=== PATIENT | male | born 1935 | race Caucasian/White ===

== ENCOUNTER → 2018-03-30 | Outpatient (CLI) | payer OTHER ==
[~2018-03-30] MED LIST: ACET325 PR; ACET500 PO; ALPR.25 PO; ALUM320SU PO; AMIT50 PO; AMLO5 PO; ASPI325 PO; ASPI81CH PO; ASPI81EC; ATOR10 PO; ATOR20 PO; ATROPINE 0.01%-10 ML SL; Alphagan P5 ML RIGHTEYE; Ancef/Kefzol1000 MG IV; Azor 10-20 MG1 EACH PO; Benadryl25 MG PO; CARV25 PO; CETI5 PO; CHOL10002 PO; CYAN1000 PO; DONE10 PO; Donnatal E16.2 MG/5; FAMO20 PO; Fentanyl1 EACH TD; GLIP10 PO; GLIP5ER; GLUCHON; HYDCHL12.5; IMIQUIMOD 5%; IMIQUIMOD1 EACH TOP; INSN100I SUBQ; INSU100I6; INSU100I6 SC; INSUGL100V; Isosorbide Mono30 MG PO; Isosorbide Mono60 MG PO; LEVSOD50 PO; LISI5; MAGOXI400 PO; MEMA10 PO; METF500; METO25 PO; METO25ER PO; MIDO5 PO; MORP20L SL; MULVITMIND PO; NITR.4SL SL; NORT25 PO; NYST100000 PO; Novolog100 UNIT/2 SC; Omeprazole20 M1 PO; PRED10 PO; PRED20 PO; PRED5EL PO; PREG75 PO; PROM12.5S PR; PYRI100 PO; Pepcid20 MG PO; Percocet 5-3251 EACH PO; Prilosec40 MG PO; ROSU10TA PO; SPIR25 PO; TICA90TA PO; Zofran Odt4 MG SL
[2018-03-30 12:27] LABS: Hematocrit 32.3 % (37.0-53.0); Hemoglobin 10.2 g/dL (13.5-17.5); Mean Corpuscular HGB 28.3 pg (26.0-34.0); Mean Corpuscular HGB Conc 31.6 g/dL (31.5-36.5); Mean Corpuscular Volume 90 fL (80-100); Mean Platelet Volume 10.6 fL (9.1-12.4); Platelet Count 210 K/mm3 (150-400); RDW Coefficient Variation 14.6 % (11.7-14.2); RDW Standard Deviation 47.1 fL (35.1-46.3); White Blood Cell Count 6.39 K/mm3 (4.00-11.30)
[2018-03-30 13:15] LABS: Albumin, Blood 2.6 g/dL (3.4-5.0); Albumin/Globulin Ratio 0.6 (0.8-1.8); Bilirubin, Total 0.4 mg/dL (0.1-1.0); Bun/Creatinine Ratio 12.6 (12.0-20.0); Calcium, Blood 8.3 mg/dL (8.5-10.1); Creatinine, Blood 2.69 mg/dL (0.60-1.20); Globulin, Blood 4.3 g/dL (2.2-4.0); Potassium, Blood 4.3 mmol/L (3.5-5.5); Total Protein, Blood 6.9 g/dL (6.4-8.2)
[2018-03-30 13:16] LABS: C-REACTIVE PROTEIN, EXT RANGE 5.28 mg/dL (0.000-0.300)
== END ==
LOC: LAB 11:53 → LAB SHORT 11:53
PROVIDERS: Internal Medicine
DX: E11.00 Type 2 diabetes mellitus with hyperosmolarity without nonketotic hyperglycemic-hyperosmolar coma (NKHHC) (principal); M00.872 Arthritis due to other bacteria, left ankle and foot
CPT/HCPCS: 80053; 85027; 85651; 86140

== ENCOUNTER → 2018-04-06 | Outpatient (CLI) | payer OTHER ==
[2018-04-06 11:52] LABS: Hematocrit 35.8 % (37.0-53.0); Hemoglobin 11.3 g/dL (13.5-17.5); Mean Corpuscular HGB 28.1 pg (26.0-34.0); Mean Corpuscular HGB Conc 31.6 g/dL (31.5-36.5); Mean Corpuscular Volume 89 fL (80-100); Mean Platelet Volume 10.8 fL (9.1-12.4); Platelet Count 188 K/mm3 (150-400); RDW Coefficient Variation 15.3 % (11.7-14.2); RDW Standard Deviation 50.4 fL (35.1-46.3); Red Blood Cell Count 4.02 M/mm3 (4.30-5.90)
[2018-04-06 12:05] LABS: Albumin, Blood 2.8 g/dL (3.4-5.0); Albumin/Globulin Ratio 0.6 (0.8-1.8); Bilirubin, Total 0.2 mg/dL (0.1-1.0); Bun/Creatinine Ratio 10.3 (12.0-20.0); C-REACTIVE PROTEIN, EXT RANGE 7.48 mg/dL (0.000-0.300); Calcium, Blood 8.8 mg/dL (8.5-10.1); Creatinine, Blood 5.03 mg/dL (0.60-1.20); Globulin, Blood 4.8 g/dL (2.2-4.0); Magnesium, Blood 2.4 mg/dL (1.6-2.4); Total Protein, Blood 7.6 g/dL (6.4-8.2)
== END ==
LOC: LAB SHORT 09:20 → LAB 09:20
PROVIDERS: Internal Medicine
DX: M00.872 Arthritis due to other bacteria, left ankle and foot (principal)
CPT/HCPCS: 80053; 83735; 85027; 85651; 86140

== ENCOUNTER 2018-04-09 16:20 | Inpatient (IN) | payer OTHER ==
[~2018-04-09] VITALS: Ht 182.9 cm; Wt 72.4 kg
[~2018-04-09 16:20] MED LIST changes: -ACET325 PR; -ALPR.25 PO; -ALUM320SU PO; -ATROPINE 0.01%-10 ML SL; -Alphagan P5 ML RIGHTEYE; -Ancef/Kefzol1000 MG IV; -CETI5 PO; -Donnatal E16.2 MG/5; -Fentanyl1 EACH TD; -INSU100I6; -Isosorbide Mono60 MG PO; -METO25 PO; -MIDO5 PO; -MORP20L SL; -NITR.4SL SL; -NYST100000 PO; -PRED5EL PO; -PROM12.5S PR
[2018-04-09] MEDS ORDERED: Alphagan P5 ML RIGHTEYE (17:01)
[2018-04-09] MEDS ORDERED: CETI5 PO (17:01)
[2018-04-09] MEDS ORDERED: FAMO20 PO (17:51)
[2018-04-09] MEDS ORDERED: MIDO5 PO (17:52)
[2018-04-09] MEDS ORDERED: ATOR20 PO (17:53)
[2018-04-09] MEDS ORDERED: Ancef/Kefzol1000 MG IV (17:54)
[2018-04-09 18:43] LABS: International Normalized Ratio 1.14; Prothrombin Time Results 11.9 Sec (9.7-11.5)
[2018-04-09 18:46] LABS: C-Reactive Protein, High Sens. 32.2 mg/L (0.000-3.000)
[2018-04-09 19:00] LABS: Creatinine, Urine Random 60.1 mg/dL (27.00-270.00)
[2018-04-09 19:46] LABS: Prostate Specific Antigen <0.010 ng/mL (0.000-4.000)
[2018-04-09 20:28] LABS: Bilirubin, Urine Neg (Neg); Blood, Urine 3+ (Neg); Glucose Qualitative, Urine 1+ (Neg); Ketones, Urine Neg (Neg); Leukocyte Esterase, Urine Neg (Neg); Nitrite, Urine Neg (Neg); Protein, Urine 3+ (Neg); Specific Gravity, Urine 1.015 (1.003-1.022); Urobilinogen, Urine NORM (Normal)
[2018-04-09 20:35] LABS: Appearance, Urine Clear (Clear); Color, Urine Yellow (P-Yellow); Eosinophils-Raw #,Urine 0
[2018-04-09 20:42] LABS: White Blood Cells, Urine Rare /hpf (0-5)
[2018-04-09 20:43] LABS: Amorphous Light ({null, 0-Heavy}); Bacteria Rare /hpf; Squamous Epithelial Cells Rare /hpf (Few)
[2018-04-09 20:49] LABS: White Blood Cells Urine 0-2 /hpf (0-5)
[2018-04-09 21:39] LABS: Albumin, Blood 2.6 g/dL (3.4-5.0); Anion Gap 20 mmol/L (6-16); Blood Urea Nitrogen 76 mg/dL (8-24); Bun/Creatinine Ratio 10.6 (12.0-20.0); CO2, Blood 14 mmol/L (21-32); Calcium, Blood 8.4 mg/dL (8.5-10.1); Chloride, Blood 105 mmol/L (98-108); Creatinine, Blood 7.16 mg/dL (0.60-1.20); Glomerular Filtration Rate 8 (60-); Glucose, Blood 190 mg/dL (70-99); Phosphorus, Blood 5.3 mg/dL (2.5-4.9); Potassium, Blood 4.7 mmol/L (3.5-5.5); Sodium, Blood 139 mmol/L (136-145)
[2018-04-09 23:21] LABS: Albumin, Blood 2.6 g/dL (3.4-5.0); Anion Gap 18 mmol/L (6-16); Blood Urea Nitrogen 75 mg/dL (8-24); Bun/Creatinine Ratio 10.6 (12.0-20.0); CO2, Blood 17 mmol/L (21-32); Calcium, Blood 8.1 mg/dL (8.5-10.1); Chloride, Blood 104 mmol/L (98-108); Creatinine, Blood 7.09 mg/dL (0.60-1.20); Glomerular Filtration Rate 8 (60-); Glucose, Blood 266 mg/dL (70-99); Phosphorus, Blood 5.7 mg/dL (2.5-4.9); Potassium, Blood 4.9 mmol/L (3.5-5.5); Sodium, Blood 139 mmol/L (136-145); Troponin I 0.083 ng/mL (0.000-0.040)
[2018-04-10 06:17] LABS: Hematocrit 30.1 % (37.0-53.0); Hemoglobin 9.4 g/dL (13.5-17.5); Mean Corpuscular HGB 28.6 pg (26.0-34.0); Mean Corpuscular HGB Conc 31.2 g/dL (31.5-36.5); Mean Platelet Volume 10.3 fL (9.1-12.4); Platelet Count 168 K/mm3 (150-400); RDW Coefficient Variation 15.4 % (11.7-14.2); RDW Standard Deviation 51.3 fL (35.1-46.3); Red Blood Cell Count 3.29 M/mm3 (4.30-5.90); White Blood Cell Count 9.78 K/mm3 (4.00-11.30)
[2018-04-10 06:18] LABS: Mean Corpuscular Volume 92 fL (80-100)
--- NOTE | 2018-04-10 06:18 | NUR ---
SHIFT SUMMARY PT ARRIVED TO PCU FROM ER. HE WAS PLEASANT AND COOPERATIVE WITH VITALS AND ASSESSMENTS. HE STATED PAIN WAS UNDER CONTROL AND WAS ALERT AND ORIENTED X 3. APPROX AN HOUR LATER, HE WAS IN 10/10 PAIN IN HIS CHEST AND ANXIOUS. SOME CHANGES WERE OBSERVED ON TELEMETRY SO DOCTOR WAS CONTACTED, EKG WAS PERFORMED AND NEW ORDERS WERE RECIEVED. PT WAS PROVIDED ORDERED PAIN MEDS. NO CHANGES WERE OBSERVED SO NEW ORDERS WERE RECEIVED. PT CONTINUED TO GET NO RELIEF WITH MEDS SO ANTI ANXIETY MEDS AND PROTONIX ORDERS WERE RECIEVED. PT DID END UP GETTING SOME SLEEP AND CALMED CONSIDERABLY FOLLOWING ADMIN OF ATIVAN. PT VITALS HAVE IMROVED, PT SLEEPING SOUNDLY AND NO SX OF PAIN HAVE BEEN NOTED AT THIS TIME. HE WILL CONTINUE TO BE MONITORED UNTIL HANDOFF TO DAYSHIFT RN
[2018-04-10 06:45] LABS: Calcium, Blood 7.5 mg/dL (8.5-10.1); Creatinine, Blood 7.17 mg/dL (0.60-1.20); Potassium, Blood 5.3 mmol/L (3.5-5.5)
[2018-04-10 06:48] LABS: Troponin I 1.83 ng/mL (0.000-0.040)
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
--- NOTE | 2018-04-10 12:54 | NUR ---
PT SLEEPING HARD, STATES THIS IS NORMAL FOR HIM, AND HE WAS UP ALL NIGHT, CALL LIGHT IN REACH.
--- NOTE | 2018-04-10 15:27 | NUR ---
Spiritual care visit conducted. Patient was lying in bed and not responsivewith his sister sitting bedside as I entered the room. Patient's sister said that her [id number] was talking with the nurse. I visited with the sister and learned that the patient has had a difficult time and that this has been difficult for the whole family. I listened empathically, normalized her experience, and offered emotional support. she expressed gratitude for the visit. I will remain available for the family.
--- NOTE | 2018-04-10 18:23 | NUR ---
PT RESTING IN BED, WAS WOKE FOR DINNER, AND REPOSITIONED, PLACED A DRESSING TO COCCYX FOR PREVENTION, NO FURTHER CHANGES THIS SHIFT. CALL LIGHT IN REACH.
--- NOTE | 2018-04-11 00:50 | NUR ---
PM NOTE. ASSUMED CARE OF PT APROX 1900, PT IS A&Ox3 AT TIMES AND IS CONFUSED AT TIMES BUT HE IS ALWAYS COOPERATIVE AND FOLLOWS DIRECTIONS. PT WAS ADMITTED DUE TO NSTEMI W/MEDICAL MANGEMENT. PT HAS HEPERIN GTT GOING AT 13U/KG/HR DOSE WT 69 KG, 17.9 MLS PER HOUR. TELE INTACT, SB W/FIRSTDEGREE BLOCK IN THE 50'S, PT'S BP 110/51. 1+ EDEMA TO THE PT'S BUE AND BLE, GENERALIZED EDEMA NOTED WELL. L/S CLEAR T/O, RESPERATIONS EVEN AND UNLABORED. BT PRESENT AND HYPOACTIVE, ABD IS SOFT BUT TENDER WITH PALP DOWN THE MIDLINE. CALL LIGHT IN REACH, BED IS LOCKED AND LOW, WILL CONTINUE TO MONITOR.
[2018-04-11 04:29] LABS: BASOPHILS ABSOLUTE AUTO 0.03 K/mm3 (0.00-0.23); BASOPHILS PERCENT AUTO 0 % (0-2); EOSINOPHILS ABSOLUTE AUTO 0.19 K/mm3 (0.00-0.68); EOSINOPHILS PERCENT AUTO 2 % (0-6); Hematocrit 26.3 % (37.0-53.0); Hemoglobin 8.5 g/dL (13.5-17.5); IMMATURE GRAN ABSOLUTE AUTO 0.05 K/mm3 (0.00-0.10); IMMATURE GRAN PERCENT AUTO 1 % (0-1); LYMPHOCYTES ABSOLUTE AUTO 2.22 K/mm3 (0.84-5.20); LYMPHOCYTES PERCENT AUTO 26 % (21-46); MONOCYTES PERCENT AUTO 8 % (4-13); Mean Corpuscular HGB 28.6 pg (26.0-34.0); Mean Corpuscular HGB Conc 32.3 g/dL (31.5-36.5); Mean Platelet Volume 10.5 fL (9.1-12.4); NEUTROPHILS ABSOLUTE AUTO 5.49 K/mm3 (1.96-9.15); NEUTROPHILS PERCENT AUTO 63 % (41-73); Platelet Count 160 K/mm3 (150-400); RDW Coefficient Variation 15.8 % (11.7-14.2); RDW Standard Deviation 50.9 fL (35.1-46.3); Red Blood Cell Count 2.97 M/mm3 (4.30-5.90); White Blood Cell Count 8.68 K/mm3 (4.00-11.30)
[2018-04-11 04:31] LABS: Mean Corpuscular Volume 89 fL (80-100)
[2018-04-11 04:43] LABS: Albumin, Blood 2.1 g/dL (3.4-5.0); Anion Gap 15 mmol/L (6-16); Blood Urea Nitrogen 84 mg/dL (8-24); Bun/Creatinine Ratio 10.7 (12.0-20.0); CO2, Blood 21 mmol/L (21-32); Calcium, Blood 7.4 mg/dL (8.5-10.1); Chloride, Blood 106 mmol/L (98-108); Creatinine, Blood 7.86 mg/dL (0.60-1.20); Glomerular Filtration Rate 7 (60-); Glucose, Blood 63 mg/dL (70-99); Phosphorus, Blood 5.5 mg/dL (2.5-4.9); Sodium, Blood 142 mmol/L (136-145)
--- NOTE | 2018-04-11 07:18 | NUR ---
SHIFT SUMMARY. PT SLEPT WELL T/O THE NIGHT UNTIL APROX 0500, PT HAD DISCONNECTED HIS MACK TUBE BAG FROM THE CATHETER. THERE WAS DRY BLOOD AROUND THE TIP OF THE PT'S PENIS, CATH CARE WAS PERFORMED AND OLD MACK WAS REMOVED. PT'S CATHETER WAS CHANGED OUT DUE TO [facility]. PT WAS ALSO GIVEN A BEDBATH AND LINEN CHANGE AT THIS TIME. THIS RN AND STAFF WERE AWARE OF THE PT'S DEMENTIA AND EXPLANINED EACH STEP OF THE PROCESS DURING THE BEDBATH AND LINEN CHANGE. AFTER THIS WAS DONE, THIS RN NOTED THAT THE PT HAD AUDIABLE WHEEZES, PALE AND COMPLAINING OF CHEST PAIN. PT WAS ASSESSED AND WHEEZES AND CRACKELS WERE HEARED T/O THE PT'S LUNGS. PT'S 02 STATS WERE IN THE 70'S ON RA, PT WAS PLACED ON 02 AT 10L VIA OXYMIZER, PT WAS GIVEN PAIN MEDICATION PER EMAR AND PROVIDER WAS CALLED. ORDERS WERE OBTAINED AT THIS TIME. PROVIDER ALSO SPOKE WITH PT'S ABOUT POSSIBLE DIALYSIS FOR THE PT, AGREED ON A TEMPORARY BASIS. PT WAS TREATED PER NEW ORDERS, WHEEZES AND CRACKLES WERE DECREASED FROM PRIOR ASSESSMENT, 02 WAS ABLE TO TITRATED DOWN FROM 10L TO 6L W/STATS >90%. PT IS STILL ON A HEPARIN GTT (SEE PREVIOUS NOTE.) REPORT WAS GIVEN TO ONCOMING RN AT THIS TIME.
[2018-04-11 09:23] LABS: PCO2 Arterial 36.3 mmHg (35-45); PO2 Arterial 89.9 mmHg (80-100); pH Blood Arterial 7.37 (7.35-7.45)
--- NOTE | 2018-04-11 18:00 | NUR ---
[facility]IAL [facility] CARE VISIT: Met with pt's Izzy and patrizia in pt's room PCU#8. Pt slept t/o my visit and appeared exhausted. reports they have spoken to many doctors today and are weighing medical decisions. She had brought in the original POA for healthcare and AD that had been completed at the [facility] some time ago. Izzy states she and her have been together for decades but at the time the AD was completed they were not yet as they are now. She states her would not life prolonging measures due to his poor quality of life, confusion, pain from neuropathies, wounds & immobility. His AD is consistent with his wishes. A copy of the AD was placed on the chart and has the original. Izzy has been Herbie's primary CG and she and the kids have discussed for some time that she needs help with him at home. She acknowledges this now. Izzy was given booklet, "Hard Choices for [place] People" to help generate questions she may have for her 's medical providers. Izzy states her is a 100% service connected [place] and that the MD has been very helpful with getting equipment they need in the home and they have begun the process of getting [facility]. We agreed to meet again tomorrow in case she and other family members had questions and to assess pt further for s/s management needs. I did not disturb pt this evening as he has had a lot of medical personell and consults in with him today. is staying over with him. We talked about the nonpharmacological things we could do to increase his comfort. 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 I thanked her for being present and her excellent care of her . She expressed some cg fatigue and I encouraged her, as her daughter did, to take breaks and take care of herself also. Plan to see again tomorrow. RN updated on my visit.
--- NOTE | 2018-04-11 19:20 | NUR ---
ASSUMED CARE PT RESTING IN ROOM COMFORTABLY. PER DAY SHIFT RN PT HAD DRESSING CHANGE FOR WOUND VAC ON L FOOT TODAY. PT WAS ALSO TITRATED DOWN ON O2 TO 5L OXIMIZER AND IS TOLERATING WELL. PT HAS SORE BACKSIDE, AND PER DAY SHIFT WAS REPOSITIONED Q2 HR, BUT PT SLIDES DOWN AND SHIFTS SELF IN BED IMMEDIATELY AFTER POSITIOING. RESP EVEN UNLABORED ON 5L O2 VIA OXIMIZER. DENIES PAIN. SKIN IS PWD. PT HAS HEPARIN GTT INFUSING IN POWERGLIDE, WELL SODIUM BICARB GTT INFUSING. RATES CHECKED WITH DAY SHIFT RN. PT DENIES ANY OTHER NEEDS AT THIS TIME. BED ALARM FOR SAFETY. PT CONFUSED AT TIMES. CALL LIGHT IN REACH. FAMILY AT BEDSIDE.
--- NOTE | 2018-04-11 19:25 | NUR ---
END OF SHIFT SUMMARY; REPORT TO LINDA RANGEL WHO WILL ASSUME CARE AND COMFORT OF THIS PATIENT. PT HAD RESTFULL DAY TODAY. REMAINS ON BEDREST. HE IS ORIENTED TO PERSON AND TO PLACE BUT NOT TIME. HE DOES NOT REMEMBER HIS BIRTHDAY OR THE YEAR BUT DOES KNOW HIS FAMILY AND WHERE HE IS AT THIS MOMENT. HE HAD 550ML OUTPUT TODAY. SPOUSE ASSISTS PATIENT IN EATING. ATTEMPTS TO REPOSITION PATIENT EVERY TWO HOURS. PT PULLS AT PILLOWS AND SQUIRMS TO GET PILLOW FROM UNDER HIS SIDES. HE REMAINS ON 5 LITERS OXYMIZER. CONSULTED WITH PATIENT TODAY. NO NEW ORDERS ARE RECEIVED. WOUND VAC REMAINS IN PLACE ON LEFT ANKLE. DRESSING INTACT. NO AIR LEAKS NOTED.
[2018-04-12 04:14] LABS: Hematocrit 26.7 % (37.0-53.0); Hemoglobin 8.4 g/dL (13.5-17.5)
[2018-04-12 04:41] LABS: Magnesium, Blood 1.9 mg/dL (1.6-2.4); Uric Acid, Blood 8.8 mg/dL (3.5-7.2)
[2018-04-12 04:49] LABS: CPK Creatine Kinase 91 U/L (39-308)
[2018-04-12 04:52] LABS: Alanine Aminotransfer (ALT/SGP <6 U/L (12-78); Albumin/Globulin Ratio 0.5 (0.8-1.8); Alk Phos 70 U/L (50-136); Anion Gap 14 mmol/L (6-16); Aspartate Aminotrans (AST/SGOT 38 U/L (12-37); Bilirubin, Direct <0.1 mg/dL (0.0-0.3); Bilirubin, Indirect Unable to Calculate mg/dL (0.1-0.7); Bilirubin, Total 0.2 mg/dL (0.1-1.0); Blood Urea Nitrogen 94 mg/dL (8-24); Bun/Creatinine Ratio 11.3 (12.0-20.0); CO2, Blood 21 mmol/L (21-32); Calcium, Blood 7.3 mg/dL (8.5-10.1); Chloride, Blood 101 mmol/L (98-108); Creatinine, Blood 8.31 mg/dL (0.60-1.20); Globulin, Blood 4.2 g/dL (2.2-4.0); Glomerular Filtration Rate 7 (60-); Glucose, Blood 229 mg/dL (70-99); Phosphorus, Blood 7.5 mg/dL (2.5-4.9); Potassium, Blood 5.1 mmol/L (3.5-5.5); Sodium, Blood 136 mmol/L (136-145); Total Protein, Blood 6.2 g/dL (6.4-8.2)
--- NOTE | 2018-04-12 05:57 | NUR ---
SHIFT SUMMARY PT SLEEPING IN ROOM COMFORTABLY WITH AT BEDSIDE. NO ACUTE CHANGES IN PT STATUS T/O SHIFT. PT HAD CRITICAL LAB VALULE CALLED TO PROVIDER. IVF CHANGED, SEE EMAR. 24 HOUR URINE STARTED AT 0500. HEPARIN GTT AND NS GTT INFUSING IN POWERGLIDE. MACK CATH PATENT AND DRAINING CLEAR YELLOW URINE. RESP EVEN UNLBAORED ON 5L OXIMIZER W/ SATS >92%. DENIES ANY PAIN AT THIS TIME. CALL LIGHT IS IN REACH.
--- NOTE | 2018-04-12 10:14 | NUR ---
Saw pt and twice this am, early before Dr visits and briefly after. and pt were tearful and having a conversation quietly when I returned. I offered to come back later in the day if they would like me to. Update on current status and issues received from Dr Freire and pt's RN. Family is weighing a lot of information received from multiple drs this am and trying to make the best decisions with pt's previously stated wishes and current input. I will remain available to offer support or answer questions re: advanced care planning if they would like. is staying over nights and looks even more exhausted this am than yesterday pm.
--- NOTE | 2018-04-12 13:12 | NUR ---
PT OFF FLOOR TO [facility] FOR [facility]. FAMILY WITH PATIENT.
--- NOTE | 2018-04-12 15:22 | NUR ---
pt provided permission for this SN to provide care along side nurse. both family and pt provided permission for this SN to review pt medical records
--- NOTE | 2018-04-12 18:51 | NUR ---
END OF SHIFT; PT RECEIVED ANGIO PROCEDURE TODAY AFTER HAVING EPISODES OF CHEST PAIN THIS AM (SEE NOTE) LEFT CIRC WAS STENTED. PER REPORT PATIENT RECEIVED [id number] UNITS HEPARIN DURING PROCEDURE AND FENTANYL AND VERSED FOR CONSCIOUS SEDATION. PT TOALERATED PROCEDURE WELL. HE HAS A RIGHT GROIN SITE AND A RIGHT TR BAND SITE. RIGHT GROIN SITE HAD EPISODE OF BLEEDING AND DIRECT PRESSURE WAS HELD X 2 FOR 20 MINUTES EACH TIME. A BRII PATCH WAS APPLIED BY LINDA RANGEL TO GROIN SITE. HE HAS 10ML AIR IN TR BAND SITE AND HAS NOT BEEN DEFLATED ANY AT THIS TIME. HAD THIS RN PUT IN A SURGICAL CONSULT FOR [facility]. WILL COME IN THE AM TO DO PROCEDURE. FAMILY REMAINS AT [facility]. PT IS NPO AT THIS TIME FOR PROCEDURE IN AM. HE IS STILL LAYING IN SUPINE POSITION. VITAL SIGNS ARE STABLE CHARTED. HE DENIES ANY CP OR PRESSURE AT THIS TIME. WILL CONTINUE TO MONITOR THIS PATIENT CLOSELY UNTIL REPORT AND HAND OFF A NOC SHIFT.
--- NOTE | 2018-04-12 20:19 | NUR ---
PM NOTE. ASSUMED CARE OF PT APROX 1900. PT IS A&O BUT IS CONFUSED AT TIMES. PT IS S/P ANGIO TODAY WITH RIGHT GROIN SITE AND RIGHT RADIAL SITE. RIGHT GROIN SITE HAS A BRII DRESSING DUE TO BLEEDING EARLIER IN THE SHIFT, SMALL AMOUNT OF BLOOD IS SEEN ON THE DRESSING, AREA IS MARKED WITH SHARPIE WILL MONITOR CLOSLEY. TR BAND IS STILL INFLATED WITH 10MLS OF AIR AT THIS TIME. WILL BEGIN TO SLOWLY DEFLATE DUE TO ANTICOAGLUATION THE LAST 3 DAYS. TELE INTACT, SB W/FIRST DEGREE, PVCS IN THE 50'S PER RADIOLOGICAL EQUIPMENT SPECIALIST, BP 108/51. 2+ PITTING EDEMA TO BILATERAL ANKELS. L/S CLEAR T/O, O2 STATS >90% ON 4L OXYMIZER. BT PRESENT AND HYPOACTIVE, ABD IS SOFT AND NONTENDER TO PALP. CALL LIGHT IN REACH, BED IS LOCKED AND LOW WILL CONTINUE TO MONITOR.
--- NOTE | 2018-04-13 03:58 | NUR ---
PT UPDATE... 10MLS OF AIR HAS BEEN SLOWLY REMOVED FROM THE PT'S TR BAND ON THE RIGHT WRIST. TR BAND IS STILL IN PLACE AT THIS TIME. PT HAS BEEN NPO SINCE 2199 DUE TO PERMACATH PROCEDURE IN THE AM. PT'S RIGHT GROIN SITE IS STABLE, BLOOD HAS NOT EXPANDED PASSED THE AREA MARKED AT THE START OF THIS SHIFT. NO REDNESS OR SWELLING IS NOTED AT THE SITE. PT DENIES ANY PAIN OF THE RIGHT GROIN OR RIGHT WRIST. PT IS CURRENTLY ON RA AT 92%, O2 WAS TITRATED DOWN T/O THIS SHIFT. CALL LIGHT IN REACH, BED IS LOCKED AND LOW, WILL CONTINUE TO MONITOR.
[2018-04-13 05:31] LABS: Protein, Urine Quantitative 82.5 mg/dL (0.0-11.9)
[2018-04-13 05:37] LABS: Hematocrit 25.2 % (37.0-53.0); Hemoglobin 7.8 g/dL (13.5-17.5)
[2018-04-13 06:03] LABS: Magnesium, Blood 2.2 mg/dL (1.6-2.4)
[2018-04-13 06:09] LABS: Albumin, Blood 2.1 g/dL (3.4-5.0); Anion Gap 16 mmol/L (6-16); Blood Urea Nitrogen 99 mg/dL (8-24); Bun/Creatinine Ratio 11.6 (12.0-20.0); CO2, Blood 21 mmol/L (21-32); Calcium, Blood 7.3 mg/dL (8.5-10.1); Chloride, Blood 101 mmol/L (98-108); Creatinine, Blood 8.54 mg/dL (0.60-1.20); Glomerular Filtration Rate 6 (60-); Glucose, Blood 60 mg/dL (70-99); Phosphorus, Blood 7.1 mg/dL (2.5-4.9); Potassium, Blood 4.3 mmol/L (3.5-5.5); Sodium, Blood 138 mmol/L (136-145)
--- NOTE | 2018-04-13 07:42 | NUR ---
SHIFT SUMMARY. NO ACUTE CHANGES NOTED SINCE LAST NOTE. PT HAS BEEN NPO SINCE 2199. PT DENIES ANY CHEST PAIN/PRESSURE, N/V OR SOB. CALL LIGHT IN REACH, BED IS LOCKED AND LOW WILL CONTINUE TO MONITOR UNTIL REPORT IS GIVEN TO ONCOMING RN.
--- NOTE | 2018-04-13 08:00 | NUR ---
ASSUMED CARE OF PT. CBG OF 57 AND HALF AN AMP OF D50 PROVIDED SEE EMAR. PT ALERT AND ORIENTED TO SELF AND SITUATION. AT BEDSIDE STATES HE IS AT BASELINE COGNITIVELY. DAY SURGERY RN IN TO TAKE PT FOR PERMACATH. WILL AWAIT RETURN.
--- NOTE | 2018-04-13 08:53 | NUR ---
Edmar Paws warming gown applied. Surgical site prepped with 2% Chlorhexidine cloth wipe. History, Chart, Medications and Allergies reviewed before start of procedure.Lungs clear T/O to Auscultation. Patient confirms NPO status and agrees with scheduled surgery. ONLY PLACED ONE PAS ON DUE TO WOUND VAC TO LEFT FOOT. MACK TO GRAVITY. POWER PORT RUNS TO GRAVITY WITHOUT DIFFICULTY.
--- NOTE | 2018-04-13 11:18 | NUR ---
CXR CLEAR PER ROBERTO PER RAD DR GONZALES
--- NOTE | 2018-04-13 12:45 | NUR ---
UPDATE PT RETURNED FROM DAY SURGERY. PERMACATH INCISION SITE COVERED WITH DRESSING. BLEEDING EXTENDING BEYOND DRESSING. LOW BP. PRESSURE HELD ON SITE AND DR. DEL ROSARIO NOTIFIED. DR. DEL ROSARIO IN TO SEE PT AND NEW DRESSING APPLIED. 2LB WEIGHT RESTING ON INCISION SITE TO APPLY PRESSURE. DRESSING C/D/I AT THIS TIME. PT ALERT AND ORIENTED. WILL CONTINUE TO MONITOR AND RECHECK VITAL SIGNS. FAMILY AT [facility] INFORMED.
--- NOTE | 2018-04-13 15:23 | NUR ---
FIRST RUN HEMODIALYSIS TODAY PER DR RESTREPO'S ORDER. NEW R CHEST CVC PLACED BY DR DEL ROSARIO THIS AM. CORRECT PLACEWMENT CONFIRMED BY XRAY. PATIENT CONSENT REVIEWED WITH PATIENT'S SPOUSE ( ETHAN ) AND SIGNATURE RECIEVED ON DOCUMENT. ONE UNT PRBC ADMINISTERED WITH DIALYSIS TODAY.
--- NOTE | 2018-04-13 19:00 | NUR ---
SHIFT SUMMARY PT ALERT AND ORIENTED TO SELF, SITUATION, AND FAMILY. MILD CONFUSION AT TIMES. FAMILY AT BEDSIDE ALL SHIFT AND ABLE TO REORIENT PT NEEDED. VS STABLE. PT RECIEVED HEMODIALYSIS TODAY. CATH SITE IS MARKED WITH SANGUINOUS DRAINAGE CONTAINED IN DRESSING. PT SITTING UP EATING DINNER WITH HELP OF FAMILY MEMBER. MACK PATENT AND DRAINING. FEM SITE UNCHANGED THIS SHIFT SEE ASSESSMENT. RADIAL SITE C/D/I WITH CLEAR DRESSING. NO COMPLAINTS AT THIS TIME. REPORT GIVEN TO HAM STRIPPER RN.
[2018-04-14 04:39] LABS: BASOPHILS ABSOLUTE AUTO 0.01 K/mm3 (0.00-0.23); BASOPHILS PERCENT AUTO 0 % (0-2); EOSINOPHILS ABSOLUTE AUTO 0.06 K/mm3 (0.00-0.68); EOSINOPHILS PERCENT AUTO 1 % (0-6); Hematocrit 26.6 % (37.0-53.0); Hemoglobin 8.6 g/dL (13.5-17.5); IMMATURE GRAN ABSOLUTE AUTO 0.05 K/mm3 (0.00-0.10); IMMATURE GRAN PERCENT AUTO 1 % (0-1); LYMPHOCYTES ABSOLUTE AUTO 0.82 K/mm3 (0.84-5.20); LYMPHOCYTES PERCENT AUTO 12 % (21-46); MONOCYTES ABSOLUTE AUTO 0.55 K/mm3 (0.16-1.47); MONOCYTES PERCENT AUTO 8 % (4-13); Mean Corpuscular HGB 28.8 pg (26.0-34.0); Mean Corpuscular HGB Conc 32.3 g/dL (31.5-36.5); Mean Corpuscular Volume 89 fL (80-100); Mean Platelet Volume 10.8 fL (9.1-12.4); NEUTROPHILS ABSOLUTE AUTO 5.23 K/mm3 (1.96-9.15); NEUTROPHILS PERCENT AUTO 78 % (41-73); Platelet Count 108 K/mm3 (150-400); RDW Coefficient Variation 15.8 % (11.7-14.2); RDW Standard Deviation 50.7 fL (35.1-46.3); Red Blood Cell Count 2.99 M/mm3 (4.30-5.90); White Blood Cell Count 6.72 K/mm3 (4.00-11.30)
[2018-04-14 04:56] LABS: Anion Gap 11 mmol/L (6-16); Blood Urea Nitrogen 57 mg/dL (8-24); Bun/Creatinine Ratio 9.3 (12.0-20.0); CO2, Blood 27 mmol/L (21-32); Calcium, Blood 7.2 mg/dL (8.5-10.1); Chloride, Blood 102 mmol/L (98-108); Creatinine, Blood 6.12 mg/dL (0.60-1.20); Glomerular Filtration Rate 9 (60-); Glucose, Blood 116 mg/dL (70-99); Potassium, Blood 4.3 mmol/L (3.5-5.5); Sodium, Blood 140 mmol/L (136-145)
[2018-04-14 07:14] LABS: ANTIGLOMERULAR BM AB 2 units (0-20)
--- NOTE | 2018-04-14 07:47 | NUR ---
SHIFT SUMMARY PT A&O TO SELF, FAMILY, FOLLOWS DIRECTIONS, SOMETIMES KNOWS SITUATION. RA; DENIES SOB. TELEMETRY IN PLACE, SR WITH PVC'S AND 1 DEGREE BLOCK. 2 DAYS POST STENT PLACEMENT, ARM BOARD TO R WRIST INTACT; DRESSING CDI, NO CHANGES OVER SHIFT. POST DAY 1 PERMACATH PLACED TO R UPPER CHEST; PERMACATH SITE INTACT; NO CHANGED IN LIGHT PINK DRAINAGE OVER SHIFT. ABD SOFT, NON-TENDER, BT X4. PLEASENT, COOPERATIVE. DRESSING AND WOUND VAC TO LLE CDI. BLE ELEVATED/HEELS FLOATED. PEARL TO RLE. CALL LIGHT IN REACH; AT BEDSIDE T/O SHIFT. SIDE RAILS X3 AND BED ALARM ON FOR SAFETY. IN THIS AM TO SEE PT. REPORT GIVEN TO DAY SHIFT RN.
--- NOTE | 2018-04-14 08:42 | NUR ---
Additional Palliative Care referral received at 0724 this am with request from to speak with maciej re: her desire to take pt home on Hospice. I visited room at 0730 and found , tearful, sitting on pt's bed talking with him. Night nurse in room tending to pt. told Herbie she was going to step out to talk to me and he repeated, word for word, what Izzy said to him. When I said, Good morning, Herbie, he repeated back to me, "good morning, Herbie." and I stepped out. She tells me that she and her children have talked t/o past few days and yesterday after reviewing pt's AD completed with Izzy and the [facility], that they have decided to forgo further agressive treatment including additional dialysis. The states, "I know I am doing the right thing. I have to abide by his wishes." She is tearful and resolute in her decision. She asked appropriate questions re: the transition to hospice care. She states this hospitalization has escalated Herbie's dementia and confusion and this is distressing her also. She wants to get him home to familiar surroundings. We reviewed what comfort care looks like here, what equipment was needed at home, Hospice agencies available. Pt is currently on [employer] [facility] THey will need a hospital bed. She is unsure that a bedside commode or bath bench is needed. Pt is a 100% connected . She states his HH services were contracted with [facility] and [facility] and hospice would be also. Report given to RN and Dr Estes re: my visit. Comfort care, hospice eval orders obtained and entered. Returned to room to discuss with Izzy further and let her know career counselor would be in contact to assist w/dc planning. Report given to career counselorcopyright manager and info re: dc planning put in notes for Hospice referral. Spoke with RN re: comfort care orders, meds, plans. Time spent with allowing her to express her grief. Support given. Comfort Care cart ordered for room.
--- NOTE | 2018-04-14 12:00 | NUR ---
AT BEDSIDE MOST OF A.M. AND NOW DAUGHTER AT BEDSIDE. PT AWAKE AND ALERT THIS MORNING PRIOR TO A.M. MEDS GIVEN. CHANGED TO COMFORT CARE THIS MORNING. DIALYSIS AND DR. RESTREPO NOTIFIED. PT HAS BEEN SLEEPLING SINCE A.M. MEDS GIVEN.
--- NOTE | 2018-04-14 13:10 | NUR ---
MEDS LATE ENTRY TO A.M. MEDS COMPLETED DUE TO FROZEN EMAR SCREEN
--- NOTE | 2018-04-14 13:20 | NUR ---
REPORT CALLED TO PAKO RANGEL ON MEDICAL FLOOR. PT REMAINS ASLEEP. 1200 CHEMBG HELD DUE TO SLEEPING AND NOT EATING LUNCH. FAMILY REMAINS AT BEDSIDE.
--- NOTE | 2018-04-14 14:00 | NUR ---
TRANSFERRED TO ROOM 338. DAUGHTER REPORTS SHE WILL NOTIFY .
--- NOTE | 2018-04-14 14:29 | NUR ---
PCU 8 TRANSFER TO RM 338. DAUGHTER ACCOMPANY PT TO ROOM. HE IS DROWSY, SLEEPING @ THIS TIME, DAUGHTER STATE THAT THIS IS THE MOST REST HE HAS HAD SINCE @ HOSPITAL. COMFORT CARE ORDERS IN PLACE. MACK CATH PATENT DRNG LIGHT YELLOW URINE. PICC NOTED TO RUE. MARIA LUISA SANDOVAL RCW. PT APPEARS COMFORTABLE, NO S/S PAIN. WILL PROVIDE COMFORT CARE CART FOR FAMILY.
[2018-04-14 16:08] LABS: A/G RATIO 0.9 (0.7-1.7); ALBUMIN 2.4 g/dL (2.9-4.4); ALPHA-1-GLOBULIN 0.2 g/dL (0.0-0.4); ALPHA-2-GLOBULIN 0.9 g/dL (0.4-1.0); BETA GLOBULIN 0.6 g/dL (0.7-1.3); GAMMA GLOBULIN 1.1 g/dL (0.4-1.8); GLOBULIN, TOTAL 2.9 g/dL (2.2-3.9); IMMUNOGLOBULIN A, QN, SERUM 208 mg/dL (61-437); IMMUNOGLOBULIN G, QN, SERUM 1081 mg/dL (700-1600); IMMUNOGLOBULIN M, QN, SERUM 73 mg/dL (15-143); M-SPIKE Not Observed g/dL (Not Observed); PROTEIN, TOTAL, SERUM 5.3 g/dL (6.0-8.5)
--- NOTE | 2018-04-14 16:47 | NUR ---
PT STATE NO PAIN @ THIS TIME, AWAKE, ANSW BASIC QUEST APPROP. DAUGHTER @ BEDSIDE. GINNA & CATH CARE PROVIDED. LINENS & ATTENDS CHANGED. PT REPOSITIONED FOR COMFORT. WILL CONTINUE TO MX & PROVIDE COMFORT CARE.
--- NOTE | 2018-04-14 18:49 | NUR ---
PT RESTING/SLEEPING, @ BEDSIDE, STATE NO NEEDS, STATE WILL STAY NITE WITH PT. GIL RN IN TO REMOVE WOUND VAC LLE, PLACE GAUZE DRSG.
--- NOTE | 2018-04-15 05:38 | NUR ---
SHIFT SUMMARY STAYED THE NIGHT WITH PT. MACK PATENT AND DRAINING. PT RESTED WELL DURING THE NIGHT. WILL CONTINUE TO MONITOR.
[2018-04-15 08:15] LABS: HBSAG SCREEN Negative (Negative); HEP A AB, IGM Negative (Negative); HEP B CORE AB, IGM Negative (Negative); HEP C VIRUS AB <0.1 (0.0-0.9)
[2018-04-15] MEDS ORDERED: ACET325 PR (09:11)
[2018-04-15] MEDS ORDERED: INSU100I6 (09:14)
[2018-04-15] MEDS ORDERED: ALUM320SU PO (09:16)
[2018-04-15] MEDS ORDERED: ALPR.25 PO (09:17)
[2018-04-15] MEDS ORDERED: ATROPINE 0.01%-10 ML SL (09:18)
[2018-04-15] MEDS ORDERED: Fentanyl1 EACH TD (09:20)
[2018-04-15] MEDS ORDERED: Isosorbide Mono60 MG PO (09:22)
[2018-04-15] MEDS ORDERED: Donnatal E16.2 MG/5 (09:22)
[2018-04-15] MEDS ORDERED: METO25 PO (09:23)
[2018-04-15] MEDS ORDERED: MORP20L SL (09:24)
[2018-04-15] MEDS ORDERED: NITR.4SL SL (09:24)
[2018-04-15] MEDS ORDERED: NYST100000 PO (09:25)
[2018-04-15] MEDS ORDERED: PRED5EL PO (09:25)
[2018-04-15] MEDS ORDERED: PROM12.5S PR (09:27)
--- NOTE | 2018-04-15 09:30 | NUR ---
[facility] CARE COMFORT CARE VISIT: s/s assessment done and time spent with , answering her questions, supportive listening and presence this am. Pt was asleep but woke with tactile stimuli. He did not display nonverbal indicators of pain but when woke said he was hurting a little bit in his back. reports that pt has been sleeping and resting well since yesterday afternoon. He did not exhibit any untoward effects from 5 mg of Roxanol given to him yesterday am. While I was in room, Dr corado, head of precision targeting, [place]ton stopped by and supercharge repair supervisor came to remove picc line, which was done without any problems. Pt is his normal polite and gracious self with care. He is calm, expressing humor and interacting well. He is also glad for d/c. appears at peace, glad to be taking him home and is appropriately tearful and grieving. Her sister has arrived to help her and will be present in the home for the duration needed. DME was set up and delivered yesterday per and Hospice. head of precision targeting will visit Seamus at their home today and transport via gurney transport was arranged for 930 per also. Pt going home with magaña cath.
--- NOTE | 2018-04-15 10:24 | NUR ---
DISCHARGE PATIENT DISCHARGED HOME WITH HOSPICE. PICC LINE REMOVED BY CHARGE NURSE. MACK IN FOR COMFORT. TRANPORTED VIA GURNEY TRANSPORT TO PRIVATE RESIDENCE. BELONGINGS TAKEN HOME BY SPOUSE.
[2018-04-17 11:07] LABS: M-SPIKE, % Comment: % (Not Observed); PROTEIN,TOTAL,URINE 44.3 mg/dL (Not Estab.)
[2018-04-20 16:06] LABS: ANA DIRECT Negative (Negative); ANTIMYELOPEROXIDASE (MPO) ABS <9.0 U/mL (0.0-9.0); ANTIPROTEINASE 3 (PR-3) ABS <3.5 U/mL (0.0-3.5); ATYPICAL PANCA <1:20 titer ({null, Neg:<1:20}); CYTOPLASMIC (C-ANCA) <1:20 titer ({null, Neg:<1:20}); PERINUCLEAR (P-ANCA) <1:20 titer ({null, Neg:<1:20})
== END 2018-04-15 09:46 | disposition hospice, home (50) | DRG 248 ==
LOC: ER 16:20 → PCU 18:38 → MEDS 18:38 → PCU 19:48 → MEDS 04-14 14:07 → ENPENDDIS 04-15 09:03 → MEDS 04-15 09:46
PROVIDERS: Family Medicine; Internal Medicine; Internal Medicine Nephrology; Nurse Practitioner Acute Care; Surgery; ADMIT Internal Medicine
PROC: 02703DZ Dilation of Coronary Artery, One Artery with Intraluminal Device, Percutaneous Approach (ICD-10-PCS; 2018-04-12)
PROC: B2111ZZ Fluoroscopy of Multiple Coronary Arteries using Low Osmolar Contrast (ICD-10-PCS; 2018-04-12)
PROC: B5131ZA Fluoroscopy of Right Jugular Veins using Low Osmolar Contrast, Guidance (ICD-10-PCS; 2018-04-13)
PROC: 5A1D70Z Performance of Urinary Filtration, Intermittent, Less than 6 Hours Per Day (ICD-10-PCS; 2018-04-13)
PROC: 05HM33Z Insertion of Infusion Device into Right Internal Jugular Vein, Percutaneous Approach (ICD-10-PCS; principal; 2018-04-13 09:00)
DX: I21.4 Non-ST elevation (NSTEMI) myocardial infarction (principal); N18.6 End stage renal disease; M86.672 Other chronic osteomyelitis, left ankle and foot; N17.9 Acute kidney failure, unspecified; I12.0 Hypertensive chronic kidney disease with stage 5 chronic kidney disease or end stage renal disease; R78.81 Bacteremia; R34 Anuria and oliguria; F03.90 Unspecified dementia, unspecified severity, without behavioral disturbance, psychotic disturbance, mood disturbance, and anxiety; E11.40 Type 2 diabetes mellitus with diabetic neuropathy, unspecified; E86.0 Dehydration; Z95.5 Presence of coronary angioplasty implant and graft; K21.9 Gastro-esophageal reflux disease without esophagitis; Z85.46 Personal history of malignant neoplasm of prostate; Z79.4 Long term (current) use of insulin; Z86.73 Personal history of transient ischemic attack (TIA), and cerebral infarction without residual deficits; I95.9 Hypotension, unspecified; Z95.820 Peripheral vascular angioplasty status with implants and grafts; E87.70 Fluid overload, unspecified; D63.1 Anemia in chronic kidney disease; E83.39 Other disorders of phosphorus metabolism; E88.09 Other disorders of plasma-protein metabolism, not elsewhere classified; I25.118 Atherosclerotic heart disease of native coronary artery with other forms of angina pectoris
CPT/HCPCS: 36415; 36430; 36600; 71045; 76770; 77001; 80048; 80053; 80069; 80074; 81001; 81050; 82248; 82550; 82570; 82784; 82803; 82947; 83516; 83520; 83735; 83880; 84100; 84156; 84165; 84166; 84300; 84484; 84550; 85014; 85018; 85025; 85027; 85347; 85610; 85651; 85730; 86038; 86141; 86256; 86317; 86334; 86335; 86850; 86900; 86901; 86923; 87040; 87205; 92920; 92928; 92978; 93005; 93010; 93308; 93321; 93458; 96374; 99152; 99153; 99285-25; C1725; C1750; C1753; C1760; C1769; C1876; C1887; C1894; C9113; G0103; J0461; J0690; J0696; J0881; J1100; J1170; J1265; J1644; J2060; J2250; J2370; J2405; J2930; J3010; J7030; J7040; P9016; Q9967